=== PATIENT | female | born 1960 | race Caucasian/White ===

== ENCOUNTER 2019-07-06 14:26 | Emergency (ER) | payer OTHER, MEDICAID ==
[2019-07-06] MEDS: DIPHTH/TET/ACEL PERTUSS (ADULT) 0.5 ML VIAL IM* (15:01)
[2019-07-06] MEDS: LIDOCAINE 1% (MPF) 5 ML VIAL INJ (15:02)
== END 2019-07-06 16:21 | disposition home or self-care (01) ==
LOC: FTE 14:26
DX: S61.211A Laceration without foreign body of left index finger without damage to nail, initial encounter (principal); J45.909 Unspecified asthma, uncomplicated; W26.0XXA Contact with knife, initial encounter; Y92.9 Unspecified place or not applicable; Z23 Encounter for immunization
CPT/HCPCS: 12001; 90471; 90715; 99283-25

== ENCOUNTER 2019-07-27 16:21 | Emergency (ER) | payer OTHER | END 2019-07-27 17:11 | disposition home or self-care (01) | LOC: E/R 17:11 | DX: Z48.02 Encounter for removal of sutures (principal) | CPT/HCPCS: 99281; Z7502 ==